=== PATIENT | female | born 1970 ===

== ENCOUNTER 2017-02-26 09:50 | Day surgery (SDC) | payer OTHER ==
[2017-02-18 08:39] VITALS: BMI 20.9
[2017-02-26 10:45] VITALS: O2SAT 100
[2017-02-26] MEDS ORDERED: Lactated Ringer's 1,000 ML IV ONE (11:23)
[2017-02-26] MEDS ORDERED: Midazolam 2 MG/2 ML VIAL ONE (11:29)
[2017-02-26] MEDS ORDERED: Propofol 10 mg/ml Inj (20 ML) ONE (11:29)
[2017-02-26] MEDS ORDERED: HYDROmorphone 0.5 mg/0.5 ml ISec IVP PRN (12:08)
--- NOTE | 2017-02-26 12:17 | PCM.SURG1 ---
Surgeon's Initial Post Op Note - Surgeon's Notes Surgeon: Stacey Jimenez MD Breastfeeding Educator: none Type of Anesthesia: General LMA Pre-Operative Diagnosis: Abnormal uterine bleeding Operative Findings: 10 week size anterverted uteurs, bilateral ostia visulaized, thickened enodmetrium, no masses, urine output 30cc, no adnexal masses Post-Operative Diagnosis: same as above Operation Performed: Operative hysteroscopy fractional dilation and currettage Specimen/Specimens Removed: endocervical currettngs, endometrial currettings Estimated Blood Loss: EBL {In ML}: 5 Blood Products Given: N/A Drains Used: No Drains Post-Op Condition: Good Date of Surgery/Procedure: 02/26/17 Time of Surgery/Procedure: 11:00
[2017-02-26 13:47] VITALS: BP 130/80; PULSE 75; RESP 18; TEMP 97
--- NOTE | 2017-02-26 14:27 | OP ---
PROCEDURE DATE: 02/26/2017 PREOPERATIVE DIAGNOSIS: Abnormal uterine bleeding. POSTOPERATIVE DIAGNOSIS: Abnormal uterine bleeding. OPERATING FINDINGS: A 7-week size anteverted uterus, bilateral ostia visualized, thickened endometrium, no masses. URINE OUTPUT: 30 mL. No adnexal masses. PROCEDURES: Operative hysteroscopy and fractional dilation and curettage. SPECIMENS: Endocervical curettings, endometrial curettings. ESTIMATED BLOOD LOSS: 5 mL BLOOD PRODUCTS: None. COMPLICATIONS: None. DESCRIPTION OF PROCEDURE: The patient was taken to the operating where she was given general anesthesia, once found to be adequate, she was placed on the operating table in the dorsal supine position with legs supported using stirrups. The patient was then prepped and draped in the usual sterile fashion. A time-out confirmed correct patient and correct procedure. Bimanual exam was performed with the above-mentioned findings. A red rubber catheter was inserted into the urethra to drain the bladder. Following this, a weighted speculum was then placed in the posterior fornix of the vagina and Douglas retractor was placed in the anterior and posterior fornix of the vagina. The cervix was adequately visualized. A single tooth tenaculum was placed on the anterior lip of the cervix and endocervical curettings were obtained with [facility] and sent to pathology on [facility]. The uterus was then sounded to 9 cm and following this, cervix was sequentially dilated with a Son dilator to allow for introduction of 5-mm hysteroscope using normal saline as a distention media under direct visualization. Bilateral ostia were visualized with a thickened proliferative endometrium noted throughout the cavity, no gross mass was noted. The hysteroscope was then removed and a curettage was done 360 degrees until gritty texture was noted. The specimen was sent to pathology and labeled as endometrial curettings with good hemostasis noted. The single-tooth tenaculum was removed with good hemostasis noted. All instruments were removed. At the end of the procedure, all needle, sponge, and instrument counts were noted and correct x2. The patient tolerated the procedure well and was transferred to the recovery room in stable condition. tSacey Jimenez MD
== END 2017-02-26 15:04 | disposition home or self-care (01) ==
LOC: C.SDS 09:50
PROVIDERS: ATTEND Obstetrics & Gynecology
DX: N85.4 Malposition of uterus (principal); N93.9 Abnormal uterine and vaginal bleeding, unspecified; R93.8 Abnormal findings on diagnostic imaging of other specified body structures
CPT/HCPCS: 58558; 88305; J1170; J2250; J2704; J3010; J7120